=== PATIENT | male | born 1995 | race Caucasian/White ===

== ENCOUNTER 2024-03-17 19:41 | Emergency (ER) | payer OTHER ==
[~2024-03-17] VITALS: Ht 185.4 cm; Wt 95.3 kg
[2024-03-17 19:48] VITALS: BP 122/78; PULSE 55; RESP 16; TEMP 98.6; O2SAT 100
[2024-03-17 20:03] VITALS: BP 122/78; PULSE 55; RESP 16; TEMP 98.6; O2SAT 100
== END 2024-03-17 20:03 | disposition home or self-care (01) ==
LOC: MED 19:41
DX: S27.812A Contusion of esophagus (thoracic part), initial encounter (principal); X58.XXXA Exposure to other specified factors, initial encounter; Y93.89 Activity, other specified; Y92.89 Other specified places as the place of occurrence of the external cause; Y99.8 Other external cause status
CPT/HCPCS: 99281

== ENCOUNTER 2024-05-11 21:24 | Emergency (ER) | payer OTHER ==
[~2024-05-11] VITALS: Ht 185.4 cm; Wt 95.3 kg
[2024-05-11 21:38] VITALS: BP 117/78; PULSE 57; RESP 16; TEMP 98.4; O2SAT 100
[2024-05-11] MEDS ORDERED: NAPR-337 PO (23:51)
[2024-05-11] MEDS ORDERED: SULF-59 PO (23:51)
== END 2024-05-11 23:58 | disposition home or self-care (01) ==
LOC: MED 21:24
DX: L02.214 Cutaneous abscess of groin (principal)
CPT/HCPCS: 99283